=== PATIENT | female | born 1990 | race African-American/Black ===

== ENCOUNTER 2016-12-29 17:46 | Emergency (ER) | payer OTHER ==
[~2016-12-29] VITALS: Ht 172.7 cm; Wt 113.4 kg
[~2016-12-29 17:46] MED LIST: ONDA8TAB6 PO
[2016-12-29 19:32] VITALS: BP 138/85
[2016-12-29] MEDS ORDERED: ONDANSETRON HCL/PF 4 MG/2 ML VIAL ONE (19:46)
[2016-12-29] MEDS ORDERED: MORPHINE SULFATE INJ 10 MG/ML DISP.SYRIN ONE (19:47)
[2016-12-29] MEDS ORDERED: HYDROCODONE BIT/HOMATROPINE 5 ML UDC PO ONE (21:00)
[2016-12-29] MEDS ORDERED: HYDROCODONE BIT/HOMATROPINE 5 ML UDC ONE (21:06)
[2016-12-29] MEDS ORDERED: NAPROXEN 250 MG TABLET PO ONE (22:30)
== END 2016-12-29 22:37 | disposition home or self-care (01) ==
LOC: ER 17:59
DX: J06.9 Acute upper respiratory infection, unspecified (principal); J45.909 Unspecified asthma, uncomplicated
CPT/HCPCS: 99283; A4606; J2270; J2405; Z7610

== ENCOUNTER 2017-02-22 08:43 | Emergency (ER) | payer OTHER ==
[~2017-02-22] VITALS: Ht 167.6 cm; Wt 99.8 kg
[2017-02-22 08:59] VITALS: BP 146/94
== END 2017-02-22 09:10 | disposition home or self-care (01) ==
LOC: ER 08:55
DX: M54.2 Cervicalgia (principal); M54.9 Dorsalgia, unspecified; V89.2XXA Person injured in unspecified motor-vehicle accident, traffic, initial encounter; Y93.89 Activity, other specified; Y92.410 Unspecified street and highway as the place of occurrence of the external cause; Y99.8 Other external cause status
CPT/HCPCS: 99282; A4606; Z7610

== ENCOUNTER 2018-05-10 13:41 | Emergency (ER) | payer MEDICAID, OTHER ==
[~2018-05-10] VITALS: Ht 175.3 cm; Wt 136.5 kg
[2018-05-10 13:48] VITALS: BP 138/51
[2018-05-10 14:20] LABS: APPEARANCE,URINE Clear (CLEAR); BILIRUBIN,URINE Negative (NEGATIVE); BLOOD, URINE Moderate Ery/uL (NEGATIVE); COLOR,URINE Yellow (YELLOW); KETONES,URINE Negative (NEGATIVE); LEUKOCYTE ESTERASE ,URINE Negative (NEGATIVE); NITRITE, URINE Negative (NEGATIVE); PROTEIN,URINE Negative (NEGATIVE); UGLUCOSE Negative (NEGATIVE)
[2018-05-10 14:28] LABS: BACTERIA,URINE None seen /HPF (None Seen); SQUAMOUS EPITHELIAL CELL,UR Moderate /HPF (None Seen)
== END 2018-05-10 14:57 | disposition home or self-care (01) ==
LOC: ER 13:41
DX: L73.8 Other specified follicular disorders (principal); L02.828 Furuncle of other sites; E66.01 Morbid (severe) obesity due to excess calories; L91.8 Other hypertrophic disorders of the skin; R10.2 Pelvic and perineal pain; Z68.41 Body mass index [BMI] 40.0-44.9, adult; Z98.890 Other specified postprocedural states
CPT/HCPCS: 81000-TC; 82962-TC; 84703-TC

== ENCOUNTER 2019-06-17 10:22 | Emergency (ER) | payer MEDICAID ==
[~2019-06-17] VITALS: Ht 170.2 cm; Wt 104.3 kg
[2019-06-17 10:33] VITALS: BP 164/94
--- NOTE | 2019-06-17 11:01 | NUR ---
PT. VERBALIZED UNDERSTANDING OF AFTERCARE INSTRUCTIONS.Patient discharged to home in stable condition. Written and verbal after care instructions given. Patient verbalizes understanding of instruction.
== END 2019-06-17 11:02 | disposition home or self-care (01) ==
LOC: ER 10:23
DX: K61.1 Rectal abscess (principal); Z98.890 Other specified postprocedural states